=== PATIENT | female | born 1980 | race Caucasian/White ===

== ENCOUNTER → 2016-04-07 | Outpatient (CLI) | payer OTHER ==
--- NOTE | 2016-04-07 11:55 | REP ---
OBSTETRIC SONOGRAPHY: HISTORY: Non reassuring NST. Limited OB sonography. FINDINGS: Scanning demonstrates a viable single intrauterine gestation in a cephalic lie. Placenta is anterior grade 1 without evidence of previa or abruption. Amniotic fluid is subjectively normal. MARY is normal and 16.5 cm. Biophysical profile score is 8 out of a possible 8. The S/D ratio in the umbilical cord artery by Doppler is normal 2.11. Closed cervical length is 3.0 cm. heart rate is recorded at 155 beats per minute. Signed by Ankit Gastelum MD 04/07/2016 03:09 P
== END ==
LOC: M RAD 10:37
PROVIDERS: ATTEND Obstetrics & Gynecology
DX: Z36 Encounter for antenatal screening of mother (principal); Z3A.00 Weeks of gestation of pregnancy not specified

== ENCOUNTER → 2016-04-07 | Outpatient (REF) | payer OTHER | LOC: M LAB REF 12:59 | PROVIDERS: ATTEND Obstetrics & Gynecology | DX: Z22.330 Carrier of Group B streptococcus (principal) ==

== ENCOUNTER → 2016-04-11 | Outpatient (CLI) | payer MEDICAID ==
[~2016-04-11] MED LIST: ACET50TA PO; COLA100C PO; EFFE75CA75 PO; IBUP-1114 PO; METO50TA9 PO; MOM30SS PO; PRENTAB9 PO
--- NOTE | 2016-04-11 11:59 | REP ---
Limited obstetric ultrasound for amniotic fluid assessment and growth: There is a single intrauterine gestation in a vertex presentation. heart rate is hour and 28 beats per minute. The placenta is anterior. There is no placenta previa. The amniotic fluid volume subjectively is normal. Amniotic fluid index is 20.1 (7.5 - 24.3). By today's ultrasound the gestational age is 35 weeks. Based on the first ultrasound during this gestation gestational age is 37 weeks 1 day within the PURNIMA of 05/01/1925. By LMP gestational age is 36-week 6 days. weight is 2787 grams (6 pounds, 2 ounces). This is the 34th percentile for 37 weeks 1 day. Umbilical artery Doppler assessment: SD ratio 2.68. Resistive index of 0.64. Diastolic flow velocity 15.4 cm/sec. These values are normal. No additional assessments requested or performed at this time. Signed by Oren Payne MD 04/11/2016 11:49 A
== END ==
LOC: M LRY 08:52
PROVIDERS: ATTEND Obstetrics & Gynecology
DX: Z36 Encounter for antenatal screening of mother (principal); Z3A.37 37 weeks gestation of pregnancy

== ENCOUNTER 2016-04-14 12:46 | Inpatient (IN) | payer OTHER ==
[~2016-04-14] VITALS: Ht 160 cm; Wt 81.0 kg
[2016-04-14] VITALS (8 sets, daily range): BP systolic 131–168; BP diastolic 87–105
[2016-04-14] MEDS ORDERED: PRENTAB9 PO (13:13)
[2016-04-14] MEDS ORDERED: EFFE75CA75 PO (13:13)
[2016-04-14] MEDS ORDERED: METO50TA9 PO (13:13)
[2016-04-14] MEDS ORDERED: LACTATED RINGER'S 1000 ML IV STA (16:39)
[2016-04-14] MEDS ORDERED: miSOPROStol 25 MCG 1/4 TAB (S0191) PV ONE ×2 (16:45→21:30)
[2016-04-14 16:46] LABS: MEAN CORPUSCULAR HEMOGLOBIN 30.8 pg (27.0-33.0); MEAN CORPUSCULAR HGB CONC 34.6 g/dl (32.0-36.5); MEAN CORPUSCULAR VOLUME 89.1 fl (80.0-96.0); RED CELL DISTRIBUTION WIDTH 13.5 % (11.5-14.5); WHITE BLOOD COUNT 8.2 K/mm3 (4.0-10.0)
[2016-04-14] MEDS ORDERED: miSOPROStol 25 MCG 1/4 TAB (S0191) As Ordered ONE (16:47)
[2016-04-14 17:10] LABS: ALT/SGPT 10 U/L (12-78); AST/SGOT 12 U/L (15-37); BILIRUBIN,TOTAL 0.4 MG/DL (0.2-1.0); CREATININE FOR GFR 0.59 MG/DL (0.55-1.02); GLOMERULAR FILTRATION RATE > 60.0 (>60); URIC ACID 3.1 MG/DL (2.6-6.0)
[2016-04-14] MEDS: VANCOMYCIN HCL 1,000 MG, VIAL MATE ADAPTER 1 EACH in D5W 250 ML IV SCH (17:14)
[2016-04-14] MEDS: LR 1,000 ML IV SCH (17:14)
[2016-04-15] VITALS (12 sets, daily range): BP systolic 108–144; BP diastolic 64–84
[2016-04-15] MEDS ORDERED: FENTANYL 2MCG/ML ROPIVACAINE 0.2% NACL 250 ML CADD As Ordered ONE (01:35)
[2016-04-15] MEDS ORDERED: OXYTOCIN 30 UNITS IN 0.9% NaCl 500ML IV BAG (J2590) As Ordered ONE (01:36)
[2016-04-15] MEDS ORDERED: OXYTOCIN DRIP 30 UNITS in APPROPRIATE DILUENT 1 EA IV SCH ×2 (02:00→08:13)
[2016-04-15] MEDS ORDERED: LACTATED RINGER'S 1000 ML IV PRN (02:20)
[2016-04-15] MEDS ORDERED: EPIDURAL COMMENT XX SCH (02:20)
[2016-04-15] MEDS ORDERED: ONDANSETRON 4MG/2ML VIAL (J2405) IV PRN (02:20)
[2016-04-15] MEDS ORDERED: FENTANYL/ROPIVACAINE/NACL CADD 250 ML EPIDURAL SCH (02:20)
[2016-04-15] MEDS ORDERED: ePHEDrine SULFATE 25 MG/5 ML(5MG/ML) SYRINGE IV PRN (02:20)
[2016-04-15] MEDS ORDERED: NALOXONE INJ 0.4 MG/1 ML VIAL (J2310) IV PRN (02:20)
[2016-04-15] MEDS ORDERED: diphenhydrAMINE INJ 50MG/ML VIAL (J1200) IV PRN (02:20)
[2016-04-15] MEDS ORDERED: REFRIGERATOR IV KEYS XX PRN (02:20)
[2016-04-15] MEDS ORDERED: EPIDURAL/PCA KEYS XX PRN (02:20)
[2016-04-15] MEDS: LR 1,000 ML IV SCH (02:21)
[2016-04-15] MEDS: VANCOMYCIN HCL 1,000 MG, VIAL MATE ADAPTER 1 EACH in D5W 250 ML IV SCH (05:28)
[2016-04-15] MEDS ORDERED: ANUSOL HC CREAM 30GM TOP PRN (08:15)
[2016-04-15] MEDS ORDERED: MOM 30ML SUSPENSION UDC PO PRN (08:15)
[2016-04-15] MEDS ORDERED: DIBUCAINE 1% OINTMENT 30GM TOP PRN (08:15)
[2016-04-15] MEDS ORDERED: ACETAMINOPHEN 500 MG TAB PO PRN (08:15)
[2016-04-15] MEDS ORDERED: METHYLERGONOVINE MALEATE 0.2 MG TAB PO PRN (08:15)
[2016-04-15] MEDS ORDERED: DOCUSATE SODIUM 100 MG CAP PO PRN (08:15)
[2016-04-15] MEDS ORDERED: MEASLES,MUMPS,RUBELLA VACCINE INJ (MMR-II) (90707) SC SCH (08:15)
[2016-04-15] MEDS ORDERED: RHOGAM 300 MCG (1500 IU) INJ (J2790) IM SCH (08:15)
--- NOTE | 2016-04-15 09:37 | DN ---
DATE: 04/15/2016 TIME OF : 0802 GENDER: Female. APGARS: 8 and 9. WEIGHT: 2704 grams or 5 pounds 15 ounces. ANESTHESIA: Epidural. LACERATIONS: None. ESTIMATED BLOOD LOSS: 300 mL. COUNTS: 5 laparotomy sponges accounted for prior to and after delivery. DELIVERY NOTE: On 04/15/2016, at 0802, Mrs. Carrion, a 35-year-old, 3, now para 3, had a spontaneous vaginal delivery of a live born female infant, Apgars 8 and 9, weight 2704 grams or 5 pounds 15 ounces. Head was delivered occiput anterior (OA) over an intact perineum. There was a loose nuchal cord which was manually reduced followed by delivery of right anterior and left posterior shoulder followed by the corpus. The was then handed to mom with a good cry. The cord was clamped times two and was cut by the father of the baby under my direction. Cord blood was then obtained. The placenta was then drained and delivered grossly intact. A premixed bag of 500 mL of normal saline with 30 units of Pitocin was then bolused along with uterine massage. The uterus was firm. On inspection, cervix, vagina and perineum grossly intact and hemostatic. Mom and baby recovering in stable condition. The couple has decided to name their daughter, Cabrera.
[2016-04-15] MEDS: PRENATAL VITAMIN TAB PO SCH (09:40)
[2016-04-15] MEDS: IBUPROFEN 800 MG TAB PO PRN ×2 (13:29→20:52)
[2016-04-15] MEDS: VENLAFAXINE **XR** 75MG CAPSULE PO SCH (14:58)
[2016-04-15] MEDS: METOPROLOL SUCC (TopROL XL) 50MG **XL** TAB PO SCH (20:51)
[2016-04-16 06:02] VITALS: BP 127/71
[2016-04-16] MEDS: PRENATAL VITAMIN TAB PO SCH (08:22)
[2016-04-16] MEDS: VENLAFAXINE **XR** 75MG CAPSULE PO SCH (08:22)
[2016-04-16] MEDS: IBUPROFEN 800 MG TAB PO PRN ×2 (08:23→15:48)
[2016-04-16 17:59] VITALS: BP 135/91
[2016-04-16 20:26] VITALS: BP 126/78
[2016-04-16] MEDS: METOPROLOL SUCC (TopROL XL) 50MG **XL** TAB PO SCH (20:26)
[2016-04-16 20:50] VITALS: BP 126/78
[2016-04-17] MEDS: IBUPROFEN 800 MG TAB PO PRN (03:56)
[2016-04-17 05:27] VITALS: BP 144/71
[2016-04-17] MEDS: VENLAFAXINE **XR** 75MG CAPSULE PO SCH (07:22)
[2016-04-17] MEDS: PRENATAL VITAMIN TAB PO SCH (07:22)
[2016-04-17] MEDS ORDERED: ACET50TA PO (08:51)
[2016-04-17] MEDS ORDERED: IBUP-1114 PO (08:52)
[2016-04-17] MEDS ORDERED: MOM30SS PO (08:57)
[2016-04-17] MEDS ORDERED: COLA100C PO (08:57)
== END 2016-04-17 12:30 | disposition home or self-care (01) | DRG 560 ==
LOC: M LDI 12:46 → M OBS 04-15 09:59
PROVIDERS: ADMIT Obstetrics & Gynecology; ATTEND Obstetrics & Gynecology
PROC: 3E0P7GC Introduction of Other Therapeutic Substance into Female Reproductive, Via Natural or Artificial Opening (ICD-10-PCS; 2016-04-14)
PROC: 10E0XZZ Delivery of Products of Conception, External Approach (ICD-10-PCS; principal; 2016-04-15)
DX: O10.02 Pre-existing essential hypertension complicating childbirth (principal); Z3A.37 37 weeks gestation of pregnancy; O99.344 Other mental disorders complicating childbirth; F41.9 Anxiety disorder, unspecified; O99.824 Streptococcus B carrier state complicating childbirth; O69.81X0 Labor and delivery complicated by cord around neck, without compression, not applicable or unspecified; Z37.0 Single live birth

== ENCOUNTER → 2017-04-12 | Outpatient (REF) | payer BC | LOC: M LAB REF 12:56 | DX: R50.9 Fever, unspecified (principal) | CPT/HCPCS: 87633 ==

== ENCOUNTER → 2019-07-17 | Outpatient (CLI) | payer BC ==
[~2019-07-17] MED LIST changes: -ACET50TA PO; -COLA100C PO; +COLA100C5 PO; +EFFE75CA2 PO; -EFFE75CA75 PO; +MAPA500T2 PO
[2019-07-17 14:46] LABS: ALT/SGPT 20 U/L (12-78); BASO # 0.1 10^3/uL (0.0-0.2); BASO % 0.7 % (0.0-1.0); BILIRUBIN,TOTAL 0.5 MG/DL (0.2-1.0); CREATININE FOR GFR 0.56 MG/DL (0.55-1.30); EOS # 0.2 10^3/uL (0.0-0.5); EOS % 3.2 % (0.0-3.0); GLOMERULAR FILTRATION RATE > 60.0 (>60); HEMATOCRIT 41.6 % (36.0-47.0); HEMOGLOBIN 13.4 g/dl (12.0-15.5); LDH LACTATE DEHYDROGENASE 139 U/L (84-246); LYMPH # 1.7 10^3/uL (1.5-5.0); MEAN CORPUSCULAR HEMOGLOBIN 29.1 pg (27.0-33.0); MEAN CORPUSCULAR HGB CONC 32.2 g/dl (32.0-36.5); MEAN CORPUSCULAR VOLUME 90.2 fl (80.0-96.0); MONO # 0.3 10^3/uL (0.0-0.8); NEUTROPHILS # 5.1 10^3/uL (1.5-8.5); NEUTROPHILS % 68.3 % (36.0-66.0); PLATELET COUNT, AUTOMATED 208 10^3/uL (150-450); RED BLOOD COUNT 4.61 10^6/uL (4.00-5.40); URIC ACID 3.4 MG/DL (2.6-6.0); WHITE BLOOD COUNT 7.5 10^3/uL (4.0-10.0)
[2019-07-17 15:34] LABS: HIV 1&2 SCREEN CENTAUR NEGATIVE (NEGATIVE)
[2019-07-17 16:35] LABS: CHLAMYDIA DNA AMPLIFICATION NEGATIVE (NEGATIVE); GC DNA AMPLIFICATION NEGATIVE (NEGATIVE)
[2019-07-19 09:16] LABS: HEPATITIS C VIRUS ABY INDEX 0.1 INDEX (<0.8)
== END ==
LOC: M PLALAB 10:59
PROVIDERS: ATTEND Obstetrics & Gynecology
DX: O09.511 Supervision of elderly primigravida, first trimester (principal); Z3A.10 10 weeks gestation of pregnancy

== ENCOUNTER → 2019-09-12 | Outpatient (CLI) | payer BC ==
[~2019-09-12] MED LIST changes: +EFFE150C2 PO
--- NOTE | 2019-09-12 11:23 | REP ---
OB ULTRASOUND: Real-time sonographic evaluation of the gravid uterus performed. There is a single living intrauterine gestation with an estimated gestational age 18 weeks 1 day, EDC 02/12/2020. BPD 41 mm = 18 weeks 2 day HC 150 mm = 18 weeks 0 days AC 123 mm = 18 weeks 0 days FL 27 mm = 18 weeks 2 days HC/AC ratio 1.22, normal range 1.07 to 1.26. Estimated weigh 224 grams, 40th percentile. SEEN/GROSSLY UNREMARKABLE Lateral ventricles Yes Posterior fossa Yes Upper lip No Four-chamber heart Yes Echogenic focus left ventricle likely related to cordae tendinea LVOT Yes RVOT No Stomach Yes Cord insertion Yes Three vessel cord Yes Kidneys Yes Bladder Yes Spine Yes Cervix is closed and measures 3.4 cm in time. heart rate 170 beats per minute. position: Transverse with head toward the maternal right side. Placenta is posterior and grade 0 with no previa or abruption. Amniotic fluid within normal limits.
== END ==
LOC: M WHC 09:40
PROVIDERS: ATTEND Advanced Practice Midwife
DX: O09.522 Supervision of elderly multigravida, second trimester (principal); Z3A.18 18 weeks gestation of pregnancy; O32.2XX0 Maternal care for transverse and oblique lie, not applicable or unspecified

== ENCOUNTER → 2019-10-15 | Outpatient (CLI) | payer BC ==
--- NOTE | 2019-12-09 08:01 | REP ---
OBSTETRIC ULTRASOUND FOR ANATOMY FOLLOW-UP COMPARISON: 09/12/2019. Delay in reporting results from malfunction of the hospital computer system as the result of a malware attack. On the prior study, the cardiac right ventricular outflow tract and upper lip were not satisfactorily demonstrated. On the study today, there is a single intrauterine gestation in a breech presentation. The placenta is posterior with grade 0 maturity. There is no placenta previa or abruptio. The four chamber view of the heart is adequately demonstrated and unremarkable. The right and left cardiac outflow tracts are adequately demonstrated and unremarkable. The upper lip is adequately demonstrated and unremarkable. The remainder of the anatomy was previously unremarkable and is not repeated today. heart rate is 165 beats per minute. Composite gestational age by todays ultrasound is 23 weeks 4 days. Estimated weight is 606 grams. This is the 34th percentile. Subjectively the amniotic fluid volume is normal. Cervix measures 3.4 cm in length. Estimated date of delivery (PURNIMA) is 02/06/2020. No additional evaluation is requested or performed. MTDD
== END ==
LOC: M WHC 18:14
PROVIDERS: ATTEND Advanced Practice Midwife
DX: O09.522 Supervision of elderly multigravida, second trimester (principal); Z3A.23 23 weeks gestation of pregnancy

== ENCOUNTER → 2019-11-06 | Outpatient (REF) | payer BC ==
[2019-11-06 14:38] LABS: HEMATOCRIT 36.1 % (36.0-47.0); HEMOGLOBIN 11.8 g/dl (12.0-15.5); MEAN CORPUSCULAR HEMOGLOBIN 30.3 pg (27.0-33.0); MEAN CORPUSCULAR HGB CONC 32.7 g/dl (32.0-36.5); MEAN CORPUSCULAR VOLUME 92.8 fl (80.0-96.0); PLATELET COUNT, AUTOMATED 186 10^3/uL (150-450); RED BLOOD COUNT 3.89 10^6/uL (4.00-5.40); WHITE BLOOD COUNT 7.9 10^3/uL (4.0-10.0)
== END ==
LOC: M SMT 12:21
PROVIDERS: ATTEND Advanced Practice Midwife
DX: O09.522 Supervision of elderly multigravida, second trimester (principal)

== ENCOUNTER → 2019-11-22 | Outpatient (CLI) | payer BC | LOC: M LAB 08:07 | PROVIDERS: ATTEND Advanced Practice Midwife | DX: Z34.93 Encounter for supervision of normal pregnancy, unspecified, third trimester (principal) ==

== ENCOUNTER → 2019-12-05 | Outpatient (CLI) | payer BC ==
--- NOTE | 2019-12-20 09:23 | REP ---
LIMITED OBSTETRICAL ULTRASOUND: CLINICAL: Growth evaluation. COMPARISON: 10/15/19 FINDINGS: Ultrasound examination demonstrates a single live intrauterine in breech presentation. motion was identified by technologist. Placenta noted posteriorly and grade 1 without evidence for placenta previa or abruption. Amniotic fluid volume is normal. The cervix measures 3.2 cm in length. Gestational age by current measurements equals 32 weeks 3 days with estimated date of delivery of 01/27/20. heart rate equals 161 beats per minute. MARY equals 19.7 cm. BIOMETRY CHART: BPD 7.7 cm 31 weeks 0 days Head circumference 29.1 cm 32 weeks 1 day Abdominal circumference 29.7 cm 33 weeks 5 days Femur length 6.2 cm 32 weeks 0 days Humeral length 5.7 cm 33 weeks 1 day HC/AC ratio is 0.98. Estimated weight is 2044 grams (90th percentile based on age by LMP at 31 weeks 0 days). IMPRESSION: Single live intrauterine in cephalic presentation demonstrating appropriate interval growth. Amniotic fluid volume is upper limits of normal. MTDD
== END ==
LOC: M WHC 14:01
PROVIDERS: ATTEND Advanced Practice Midwife
DX: O10.013 Pre-existing essential hypertension complicating pregnancy, third trimester (principal); Z3A.31 31 weeks gestation of pregnancy

== ENCOUNTER → 2019-12-26 | Outpatient (CLI) | payer BC ==
[~2019-12-26] MED LIST changes: -EFFE150C2 PO
--- NOTE | 2019-12-31 10:31 | REP ---
OB ULTRASOUND HISTORY: Evaluate growth. TECHNIQUE: Real-time ultrasound evaluation of gravid uterus is performed. FINDINGS: There is a single living intrauterine gestation. Estimated gestational age is reportedly 34 weeks 0 days, estimated date of confinement (EDC) 02/06/2020. Todays measurements indicate appropriate growth. BIOMETRY AND GROWTH: BPD 85 mm 34 weeks 1 day 51st percentile HC 305 mm 33 weeks 6 days 49th percentile AC 301 mm 34 weeks 0 days 51st percentile Femur length 66 mm 33 weeks 0 days 48th percentile HC/AC ratio 1.01 Normal 0.94 to 1.13 Estimated weight 2325 g 43rd percentile Cervix is closed and measures 4.0 cm in length. position is cephalic. Placenta is posterior and grade 3 with no previa or abruption. Three-vessel cord is noted. Placental cord insertion is in the mid aspect of the placenta. Abdominal cord insertion is well visualized and is unremarkable. heart rate is 161 beats per minute. Amniotic fluid is upper limits of normal. Amniotic fluid index (MARY) 22.1, normal range 8.1 to 24.8. MTDD
== END ==
LOC: M WHC 08:50
PROVIDERS: ATTEND Advanced Practice Midwife
DX: O10.013 Pre-existing essential hypertension complicating pregnancy, third trimester (principal); Z3A.34 34 weeks gestation of pregnancy

== ENCOUNTER → 2020-01-01 | Outpatient (CLI) | payer BC ==
[~2020-01-01] MED LIST changes: +EFFE150C2 PO
--- NOTE | 2020-01-06 12:47 | REP ---
DATE: 01/01/2020 BIOPHYSICAL ULTRASOUND CLINICAL: well-being TECHNIQUE: Transabdominal obstetrical ultrasound with color Doppler evaluation. FINDINGS: Ultrasound examination demonstrated a single live advanced gestation in cephalic presentation. motion was identified by technologist. Placenta noted posteriorly and grade 1 without placenta previa or abruption. Amniotic fluid volume is normal. MARY equals 21.4 cm. Cervix appears closed. Biophysical profile score: 8 out of 8 Umbilical artery 1 SD ratio: 2.29 Umbilical artery 2 SD ratio: 2.13 IMPRESSION: 1. Single live advanced gestation in cephalic presentation. 2. Biophysical profile score, amniotic fluid index and umbilical artery SD ratios normal. MTDD
== END ==
LOC: M WHC 12:02
PROVIDERS: ATTEND Obstetrics & Gynecology
DX: O10.013 Pre-existing essential hypertension complicating pregnancy, third trimester (principal); Z3A.34 34 weeks gestation of pregnancy

== ENCOUNTER → 2020-01-01 | Outpatient (CLI) | payer BC | LOC: M WHC 11:55 | PROVIDERS: ATTEND Obstetrics & Gynecology | DX: Z34.93 Encounter for supervision of normal pregnancy, unspecified, third trimester (principal); Z53.9 Procedure and treatment not carried out, unspecified reason; Z3A.34 34 weeks gestation of pregnancy ==

== ENCOUNTER → 2020-01-07 | Outpatient (REF) | payer BC ==
[~2020-01-07] MED LIST changes: -EFFE150C2 PO
== END ==
LOC: M SFHCWAGY 09:53
PROVIDERS: ATTEND Obstetrics & Gynecology
DX: O10.913 Unspecified pre-existing hypertension complicating pregnancy, third trimester (principal)

== ENCOUNTER → 2020-01-16 | Outpatient (REF) | payer BC ==
[~2020-01-16] MED LIST changes: +EFFE150C2 PO
[2020-01-16 17:12] LABS: ALT/SGPT 12 U/L (12-78); BILIRUBIN,TOTAL 0.3 MG/DL (0.2-1.0); CREATININE FOR GFR 0.67 MG/DL (0.55-1.30); GLOMERULAR FILTRATION RATE > 60.0 (>60); LDH LACTATE DEHYDROGENASE 152 U/L (84-246); URIC ACID 4.5 MG/DL (2.6-6.0)
[2020-01-16 17:27] LABS: HEMATOCRIT 38.9 % (36.0-47.0); HEMOGLOBIN 12.7 g/dl (12.0-15.5); MEAN CORPUSCULAR HEMOGLOBIN 29.1 pg (27.0-33.0); MEAN CORPUSCULAR HGB CONC 32.6 g/dl (32.0-36.5); PLATELET COUNT, AUTOMATED 187 10^3/uL (150-450); RED BLOOD COUNT 4.37 10^6/uL (4.00-5.40); WHITE BLOOD COUNT 9.3 10^3/uL (4.0-10.0)
[2020-01-16 17:33] LABS: TOTAL PROTEIN,RANDOM URINE 12.7 MG/DL (0.0-12.0)
== END ==
LOC: M PLALAB 14:31
PROVIDERS: ATTEND Advanced Practice Midwife
DX: O10.013 Pre-existing essential hypertension complicating pregnancy, third trimester (principal)

== ENCOUNTER 2020-01-23 14:31 | Inpatient (IN) | payer BC ==
[~2020-01-23] VITALS: Ht 154.9 cm; Wt 94.5 kg
[2020-01-23] VITALS (19 sets, daily range): BP systolic 130–163; BP diastolic 76–104
[~2020-01-23 14:31] MED LIST changes: -EFFE150C2 PO
[2020-01-23] MEDS ORDERED: EFFE150C2 PO (14:45)
[2020-01-23 15:37] LABS: BASO % 0.3 % (0.0-1.0); EOS # 0.1 10^3/uL (0.0-0.5); EOS % 1.3 % (0.0-3.0); HEMATOCRIT 38.3 % (36.0-47.0); HEMOGLOBIN 12.5 g/dl (12.0-15.5); LYMPH # 1.7 10^3/uL (1.5-5.0); LYMPH % 22.2 % (24.0-44.0); MEAN CORPUSCULAR HEMOGLOBIN 28.4 pg (27.0-33.0); MEAN CORPUSCULAR HGB CONC 32.6 g/dl (32.0-36.5); MONO # 0.4 10^3/uL (0.0-0.8); MONO % 4.8 % (0.0-5.0); NEUTROPHILS # 5.3 10^3/uL (1.5-8.5); NEUTROPHILS % 70.6 % (36.0-66.0); PLATELET COUNT, AUTOMATED 188 10^3/uL (150-450); WHITE BLOOD COUNT 7.5 10^3/uL (4.0-10.0)
[2020-01-23] MEDS ORDERED: LACTATED RINGER'S 1000 ML IV STA (15:51)
[2020-01-23] MEDS ORDERED: LR 1,000 ML IV SCH ×2 (15:51)
[2020-01-23] MEDS ORDERED: OXYTOCIN DRIP 30 UNITS in IV 1 EA IV SCH ×2 (16:00→20:34)
[2020-01-23 16:08] LABS: ALT/SGPT 11 U/L (12-78); BILIRUBIN,TOTAL 0.4 MG/DL (0.2-1.0); CREATININE FOR GFR 0.69 MG/DL (0.55-1.30); GLOMERULAR FILTRATION RATE > 60.0 (>60); LDH LACTATE DEHYDROGENASE 177 U/L (84-246); URIC ACID 5.1 MG/DL (2.6-6.0)
--- NOTE | 2020-01-23 16:19 | HPEPDOC ---
Obstetrical History & Physical General Date of Admission Jan 23, 2020 at 14:31 Primary Care Physician: HARRY HERRERA CNM History of Present Illness Paul is a 39-year-old female who is a at 38 weeks gestation with an PURNIMA of 02/06/20. She initiated care in her first trimester of with [facility]. Her has been complicated by AMA, anxiety, and chronic hypertension. She has not been taking any medications for CHTN. She is taking Effexor 225 mg daily for her anxiety. She presents to L&D for an induction of labor related to CHTN. She reports irregular contractions and active m ovement. She denies leaking of fluid or vaginal bleeding. Chief Complaint: Other (Essential hypertension complicating ) Information Provided By: Patient Age: 39 : 4 Term: 3 Pre-term: 0 Abortions: 0 Livin Care Care: Good Care Dating Final EDC: Feb 06, 2020 Final EDC by: 1st trimester (US) LMP: Apr 24, 2019 EGA at Admission: 38 Antepartum Course Height (inches): 61 Pre- weight (lbs.): 198 Admission Weight (lbs.): 208 Change in Weight (lbs.): 10 Past Medical History Past Obstetrical History #1: Past Obstetrical History: Primgravida Date of Delivery: Oct 10, 2003 Gestation: 39 Type of Delivery: Spontaneous Vaginal Del. Sex of : Male (weight 7 lbs 14 oz) Complications: Yes (gallstones) Past Obstetrical History #2: Past Obstetrical History: Multigravida Date of Delivery: July 23, 2005 Gestation: 39 Type of Delivery: Spontaneous Vaginal Del. Sex of : Female (7 lbs 10 oz) Complications: No Past Obstetrical History #3: Past Obstetrical History: Multigravida Date of Delivery: Apr 15, 2016 Gestation: 37 Type of Delivery: Spontaneous Vaginal Del. Sex of Infant: Female (weight 5 lbs 15 oz) Complications: Yes (CHTN) LINE HELPER History: No pertinent history Past Medical History Surgical History: Breast reduction, Gallbladder Family History Significant Family History: No pertinent family hx Social History Marital Status: Family situation: Spouse/partner home Psychosocial History: Anxiety * Smoker: non-smoker Alcohol: Denies Drugs: denies Abuse Violence Screening Have you been hit/kicked/slapp: No Have you been sexually assault: No Allergies Coded Allergies: Penicillins (Verified Allergy, Unknown, HIVES, 01/23/20) Medications Scheduled No.137/Iron/Folic Acd ( Vitamin Tablet) 1 Tab Tab, 1 TAB PO DAILY Venlafaxine HCl (Effexor Xr) 150 Mg Cap.er.24h, 225 MG PO DAILY Physical Examination Physical Examination GENERAL: Alert and oriented times three. BREAST: . ABDOMEN: Gravid and non-tender to touch. FETUS: Is vertex (VTX) by sterile vaginal examination (SVE), fetus is vertex (VTX) by Akhil. LUNGS: Clear to auscultation (CTA). EXTREMITIES: Generalized edema. No clonus. Deep tendon reflexes (DTRs) + 2. Vital Signs/I&O Vital Signs Date Time Temp Pulse Resp B/P (MAP) Pulse Ox O2 Delivery O2 Flow Rate FiO2 01/23/20 15:23 120 20 152/100 (117) 01/23/20 14:52 98.5 Laboratory Data 24H LABS Laboratory Tests 2 01/23/20 14:52: Serology Scanned Report Hepatitis B Testing 01/23/20 15:23: Immature Granulocyte % (Auto) 0.8, Neutrophils (%) (Auto) 70.6H, Lymphocytes (%) (Auto) 22.2L, Monocytes (%) (Auto) 4.8, Eosinophils (%) (Auto) 1.3, Basophils (%) (Auto) 0.3, Neutrophils # (Auto) 5.3, Lymphocytes # (Auto) 1.7, Monocytes # (Auto) 0.4, Eosinophils # (Auto) 0.1, Basophils # (Auto) 0.0, Nucleated Red Blood Cells % (auto) 0.0 CBC/BMP Laboratory Tests 01/23/20 15:23 Pertinent Laboratoy Data Blood Type: A+ RBC Antibody Screen: Negative HIV: Negative Hepatitis B: Negative Hepatitis C: Negative Rapid Plasma Reagin: Nonreactive Rubella: Immune Chlamydia/Gonorrhea: Negative Group B Streptococcus: Negative Glucose Tolerance Test: 162 (with normal 3 hour GTT) Anatomy Ultrasound Ultrasound Date: Dec 26, 2019 Placenta Location: Posterior Normal Anatomy: Yes Placenta Previa: No Estimated Weight (grams): 2325 Vaginal Examination Dilation: 4 cm Effacement: other (75%) Station: -2 Cervical Consistency: Soft Cervical Position: Middle Presentation: Cephalic presentation Position: Vertex (occiput) Assessment Heart Rate (FHR): 140 Variability: Moderate Accelerations: Positive Decelerations: None Tocometer Contractions: Yes Frequency: regular Multi-drug resistant Organism: No history of MDRO Assessment/Plan Assessment IUP at 38 weeks gestation CHTN Category I FHR tracing Advanced maternal age Anxiety Plan Admit to L&D. Plan collaborated with Dr. Sol. OOB ad edgard until epidural. Diet: clears. Group B Streptococcus (GBS) negative. Labs and intravenous (IV) per unit protocol. Counseled on Pitocin for induction of labor. Anesthesia consult per patient's request. Lactated Ringers (LR): Bolus 500 mL, then at 125 mL/hr. Anticipate cervical change and . C-S as appropriate. HARRY HERRERA CNM Jan 23, 2020 16:19
[2020-01-23] MEDS ORDERED: FENTANYL 2MCG/ML ROPIVACAINE 0.2% IN 0.9% NACL 100ML IVBAG As Ordered ONE (17:14)
[2020-01-23 17:44] LABS: CREATININE,RANDOM URINE 89.8 MG/DL; TOTAL PROTEIN,RANDOM URINE 12.6 MG/DL (0.0-12.0)
[2020-01-23] MEDS ORDERED: EPIDURAL/PCA KEYS XX PRN (18:00)
[2020-01-23] MEDS ORDERED: ePHEDrine SULFATE 25 MG/5 ML(5MG/ML) SYRINGE IV PRN (18:00)
[2020-01-23] MEDS ORDERED: REFRIGERATOR IV KEYS XX PRN (18:00)
[2020-01-23] MEDS ORDERED: ONDANSETRON 4MG/2ML VIAL IV PRN (18:00)
[2020-01-23] MEDS ORDERED: EPIDURAL COMMENT XX SCH (18:00)
[2020-01-23] MEDS ORDERED: diphenhydrAMINE 50MG/ML VIAL (J1200) IV PRN (18:00)
[2020-01-23] MEDS ORDERED: LACTATED RINGER'S 1000 ML IV PRN (18:00)
[2020-01-23] MEDS ORDERED: NALOXONE INJ 0.4MG/1ML VIAL (J2310 PER 1MG) IV PRN (18:00)
[2020-01-23] MEDS ORDERED: FENTANYL/ROPIVACAINE/NACL BAG 100 ML EPIDURAL SCH (18:00)
--- NOTE | 2020-01-23 19:33 | IPNPDOC ---
Obstetrical Progress Note Date of Service Jan 23, 2020 Subjective Patient reports she is comfortable with her epidural. Objective Vital Signs Date Time Temp Pulse Resp B/P (MAP) Pulse Ox O2 Delivery O2 Flow Rate FiO2 01/23/20 18:02 98.5 87 18 141/82 (101) Assessment Heart Rate (FHR): 135 Variability: Moderate Accelerations: Positive Decelerations: None Heart Rate Tracing: Category I Tocometer Contractions: Yes Frequency: regular Sterile Vaginal Examination Dilation: 5 cm Effacement (%): 80% Station: -2 Cervical Consistency: Soft Cervical Position: Anterior Postion/Presentation: Cephalic presentation Assessment and Plan Age: 39 : 4 Term: 3 Pre-term: 0 Abortions: 0 Livin EGA at Admission: 38 Status: Reassuring Group B Streptococcus: Negative Anticipate: Vaginal Delivery Additional Comments IV Pitocin at 8 mu/min. AROM to a large amount of clear fluid. FSE placed. HARRY HERRERA CNM Jan 23, 2020 19:33
[2020-01-23] MEDS ORDERED: METHYLERGONOVINE MALEATE 0.2 MG TAB PO PRN (20:45)
[2020-01-23] MEDS ORDERED: DOCUSATE SODIUM 100 MG CAP PO PRN (20:45)
[2020-01-23] MEDS ORDERED: RHOGAM 300 MCG (1500 IU) INJ (J2790) IM SCH (20:45)
[2020-01-23] MEDS ORDERED: MEASLES,MUMPS,RUBELLA VACCINE INJ (MMR-II) (90707) SC SCH (20:45)
[2020-01-23] MEDS ORDERED: ACETAMINOPHEN 500 MG TAB PO PRN (20:45)
[2020-01-23] MEDS ORDERED: DIBUCAINE 1% OINTMENT 30GM TOP PRN (20:45)
[2020-01-23] MEDS ORDERED: ANUSOL HC CREAM 30GM TOP PRN (20:45)
--- NOTE | 2020-01-23 20:53 | DNPDOC ---
[facility] Delivery Note Delivery Note DATE OF DELIVERY: 01/22/20 at 2007 PREDELIVERY DIAGNOSIS: 38 weeks' gestation. POST DELIVERY DIAGNOSIS: Delivered. PROCEDURE: Spontaneous vaginal delivery. CHAIN MENDER: Harry Lopez CNM, ABDIEL ANESTHESIA: epidural. ESTIMATED BLOOD LOSS: 200 mL. FINDINGS: 7 pounds 11 ounces; 3490 grams; female infant, Score 7/8, nuchal cord times 1 tight; CHTN; AMA, high dose SRNI (Effexor XR 225 mg daily), precipitous induction. DELIVERY SUMMARY: Paul is a 39 year-old female who is now a at 38 weeks gestation who presented to L&D for an induction for CHTN. She received IV Pitocin for her induction and requested an epidural for pain management. She progressed to fully dilated at 2002 and pushed to a living female in the OA position with restitution to ROT. A tight nuchal cord was noted and reduced after delivery. The anterior shoulder delivered with ease and the corpus immediately followed via [place]. The baby was placed on the maternal abdomen [id number]. The cord was clamped and cut by the FOB. The was brought over to the warming table to and cared for by the nursing staff. [place] was slow to transition. A 3-vessel cord was noted. The placenta delivered spontaneously and intact. Uterine hemostasis was achieved via rapid infusion of IV Pitocin and fundal massage. The vagina, cervix, and perineum was inspected and found to have a indira-urethral abrasion. No repair needed. They plan on naming her Lillyanna and her. Both mom and are in stable condition. All counts of instruments and sponges are correct. HARRY LOPEZ CNM Jan 23, 2020 20:53
[2020-01-23] MEDS: ACETAMINOPHEN TAB 650MG DOSE (2X325MG) PO PRN (23:34)
[2020-01-23] MEDS: VENLAFAXINE **XR** 75MG CAPSULE PO SCH (23:47)
[2020-01-24] MEDS: IBUPROFEN 600MG TAB PO PRN ×2 (01:49→22:13)
[2020-01-24 06:42] VITALS: BP 136/84
[2020-01-24] MEDS: ACETAMINOPHEN TAB 650MG DOSE (2X325MG) PO PRN (06:45)
[2020-01-24] MEDS: PRENATAL VITAMINS CHEWABLE TABLET PO SCH (07:49)
[2020-01-24] MEDS: IBUPROFEN 800 MG TAB PO PRN (12:24)
[2020-01-24 18:15] VITALS: BP 148/82
[2020-01-24] MEDS: VENLAFAXINE **XR** 75MG CAPSULE PO SCH (20:38)
[2020-01-25] MEDS: IBUPROFEN 600MG TAB PO PRN (05:39)
[2020-01-25 06:00] VITALS: BP 126/62
[2020-01-25] MEDS: PRENATAL VITAMINS CHEWABLE TABLET PO SCH (11:01)
[2020-01-25] MEDS: IBUPROFEN 800 MG TAB PO PRN (18:09)
== END 2020-01-25 18:45 | disposition home or self-care (01) | DRG 560 ==
LOC: M LDI 14:31 → M OBS 22:20
PROVIDERS: ADMIT Advanced Practice Midwife; ATTEND Advanced Practice Midwife
PROC: 10E0XZZ Delivery of Products of Conception, External Approach (ICD-10-PCS; principal; 2020-01-23)
PROC: 3E033VJ Introduction of Other Hormone into Peripheral Vein, Percutaneous Approach (ICD-10-PCS; 2020-01-23)
DX: O10.92 Unspecified pre-existing hypertension complicating childbirth (principal); O99.344 Other mental disorders complicating childbirth; F41.1 Generalized anxiety disorder; Z37.0 Single live birth; Z3A.38 38 weeks gestation of pregnancy; O09.523 Supervision of elderly multigravida, third trimester; O69.81X0 Labor and delivery complicated by cord around neck, without compression, not applicable or unspecified; Z88.0 Allergy status to penicillin